=== PATIENT | male | born 1965 | race Caucasian/White ===

== ENCOUNTER 2018-10-27 22:06 | Emergency (ER) | payer SELFPAY ==
[~2018-10-27] VITALS: Wt 76.1 kg
[2018-10-28] MEDS ORDERED: IBUPROFEN 600 MG TAB PO ONE (02:00)
[2018-10-28] MEDS ORDERED: FAMO-96 PO (04:37)
[2018-10-28] MEDS ORDERED: IBUP-1542 PO (04:37)
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
[2018-10-28 05:12] VITALS: BP 141/95; PULSE 70; RESP 20
== END 2018-10-28 05:16 | disposition home or self-care (01) ==
LOC: FTE 22:06
DX: S43.101A Unspecified dislocation of right acromioclavicular joint, initial encounter (principal); F17.210 Nicotine dependence, cigarettes, uncomplicated; R07.9 Chest pain, unspecified; V18.4XXA Pedal cycle driver injured in noncollision transport accident in traffic accident, initial encounter
CPT/HCPCS: 71045; 71100; 73050; 93005

== ENCOUNTER 2018-11-13 20:15 | Emergency (ER) | payer SELFPAY ==
[~2018-11-13] VITALS: Ht 167.6 cm; Wt 75.0 kg
[~2018-11-13 20:15] MED LIST: FAMO-96 PO; IBUP-1542 PO
[2018-11-13 20:31] VITALS: Ht 167.6 cm; Wt 75.0 kg
[2018-11-13] MEDS ORDERED: ONDANSETRON (ODT) 4 MG TAB ODT STA (21:19)
[2018-11-13] MEDS ORDERED: IBUPROFEN 800 MG TAB PO ONE (21:30)
[2018-11-13] MEDS ORDERED: CEFTRIAXONE 250 MG INJ IM ONE (21:30)
[2018-11-13] MEDS ORDERED: AZITHROMYCIN 250 MG TAB PO ONE (21:30)
[2018-11-13 22:00] VITALS: RESP 16
[2018-11-13] MEDS ORDERED: LIDOCAINE 1% (MPF) 5 ML VIAL INJ ONE (22:00)
[2018-11-13] MEDS ORDERED: IBUP-1542 PO (23:33)
[2018-11-13] MEDS ORDERED: CIPR500T4 PO (23:36)
--- NOTE | 2018-11-13 23:39 | ERD ---
ER Documentation Chief Complaint Chief Complaint LEFT TESTICAL SWELLING/PAIN WITH PAIN IN URINATION X3DAYS; POSS STI; UNSURE HPI Patient is a 53-year-old male with no medical problems who presents with left- sided testicular pain. He said the symptoms started on . He said that yesterday he tried ibuprofen. He reports subjective fevers. He has no discharge from his penis. Upon review of old medical records this is the patient's fifth visit to the ER since 2006. ROS All systems reviewed and are negative except as per history of present illness. Medications Home Meds Active Scripts Ciprofloxacin Hcl* (Ciprofloxacin Hcl*) 500 Mg Tablet, 500 MG PO BID for 7 Days, TAB Prov:PATTIE URENA MD 11/13/18 Ibuprofen* (Motrin*) 600 Mg Tab, 600 MG PO Q6H PRN for PAIN AND OR ELEVATED TEMP, #30 TAB Prov:PATTIE URENA MD 11/13/18 Famotidine* (Pepcid*) 20 Mg Tablet, 20 MG PO BID, #20 TAB Prov:MARINE VARELA PA-C 10/28/18 Ibuprofen* (Motrin*) 600 Mg Tab, 600 MG PO Q8, #20 TAB Prov:MARINE VARELA PA-C 10/28/18 Allergies Allergies: Coded Allergies: No Known Drug Allergies (Verified Allergy, Unknown, 10/27/18) PMhx/Soc Medical and Surgical Hx: pt denies Medical Hx, pt denies Surgical Hx Hx Alcohol Use: No Hx Substance Use: Yes (social, crystal meth) Hx Tobacco Use: Yes Smoking Status: Unknown if ever smoked FmHx Family History: No diabetes Physical Exam Vitals Vital Signs Date Temp Pulse Resp B/P (MAP) Pulse Ox O2 O2 Flow FiO2 Time Delivery Rate 11/13/18 100.1 94 19 145/88 99 20:31 (107) Physical Exam Const: No acute distress Head: Atraumatic Eyes: Normal Conjunctiva ENT: Normal External Ears, Nose and Mouth. Neck: Full range of motion. No meningismus. Resp: Clear to auscultation bilaterally Cardio: Regular rate and rhythm, no murmurs Abd: Soft, non tender, non distended. 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 Results 24 hrs Laboratory Tests Test 11/13/18 21:54 Bedside Urine pH (LAB) 6.5 Bedside Urine Protein (LAB) 2+ Bedside Urine Glucose (UA) Negative Bedside Urine Ketones (LAB) Trace Bedside Urine Blood Negative Bedside Urine Nitrite (LAB) Negative Bedside Urine Leukocyte Esterase (L Negative Current Medications Medications Dose Sig/Jack Start Time Status Last (Trade) Ordered Route PRN Stop Time Admin Dose Reason Admin Ceftriaxone 250 mg ONCE ONCE 11/13/18 DC 11/13/18 Sodium IM 21:30 22:13 (Rocephin) 11/13/18 21:31 1,000 mg ONCE ONCE 11/13/18 DC 11/13/18 Azithromycin PO 21:30 21:33 (Zithromax) 11/13/18 21:31 Ondansetron 4 mg ONCE STAT 11/13/18 DC 11/13/18 HCl (Zofran ODT 21:19 21:33 Odt) 11/13/18 21:21 Ibuprofen 800 mg ONCE ONCE 11/13/18 DC 11/13/18 (Motrin) PO 21:30 21:32 11/13/18 21:31 Lidocaine 5 ml ONCE ONCE 11/13/18 DC 11/13/18 (Xylocaine INJ 22:00 22:14 1% (Mpf)) 11/13/18 22:01 Procedures/MDM Ultrasound of the scrotum read by radiology was epididymo orchitis and hydrocele with good blood flow to the testicles bilaterally. Patient is a 53-year-old male who presents with left-sided testicular pain and swelling. There is no testicular torsion at this time. The patient will be treated with Cipro for 1 week for epididymoorchitis. The patient is a hydrocele and I will give information for Dr. Varela as he may need hydrocele removal if the pain continues. The patient was treated empirically for possible STD with ceftriaxone and Zithromax. The patient will be discharged but could return for any worsening symptoms. Departure Diagnosis: Primary Impression: Acute hydrocele Additional Impression: Pain in testicle Condition: Fair Patient Instructions: Hydrocele, Type Not Specified Referrals: BECK VARELA MD Additional Instructions: SPECIALIST: YOU HAVE A MEDICAL CONDITION WHICH REQUIRES YOU TO SEE A SPECIALIST WITHIN THE NEXT 1-2 DAYS. PLEASE FOLLOW UP WITH YOUR PRIMARY PHYSICIAN FOR REFFERAL.IF YOU DO NOT HAVE A PRIMARY CARE PHYSICIAN AND/OR YOU CAN NOT AFFORD TO SEE A PHYSICIAN THE FOLLOWING RESOURCES HAVE BEEN SUPPLIED TO YOU. IT IS YOUR RESPONSIBILITY TO BE SEEN BY THE SPECIALIST PATTIE URENA MD Nov 13, 2018 23:39
[2018-11-13 23:59] VITALS: BP 119/76; PULSE 82
== END 2018-11-14 | disposition home or self-care (01) ==
LOC: E/R 20:15
DX: N43.3 Hydrocele, unspecified (principal); Z87.891 Personal history of nicotine dependence
CPT/HCPCS: 76870; 81003; 96372; 99285; J0696

== ENCOUNTER 2019-07-15 05:35 | Emergency (ER) | payer OTHER ==
[~2019-07-15] VITALS: Ht 170.2 cm; Wt 79.0 kg
[~2019-07-15 05:35] MED LIST changes: +ACET500C5 PO; +CIPR500T4 PO; +ONDA4TAB14 PO
[2019-07-15 05:40] VITALS: Ht 170.2 cm; Wt 79.0 kg
[2019-07-15] MEDS ORDERED: ONDANSETRON 4 MG INJ IV STA (06:13)
[2019-07-15] MEDS ORDERED: morphine 4 MG/ML VIAL IV STA (06:13)
[2019-07-15] MEDS ORDERED: SOD CHLORIDE 0.9% 1,000 ML IV ONE (06:30)
[2019-07-15] MEDS ORDERED: KETOROLAC 30 MG INJ IM STA (07:59)
[2019-07-15] MEDS ORDERED: KETOROLAC 30 MG INJ IV STA (08:03)
[2019-07-15 10:16] VITALS: BP 142/98; PULSE 61; RESP 17
== END 2019-07-15 10:16 | disposition home or self-care (01) ==
LOC: FTE 05:35
DX: K80.20 Calculus of gallbladder without cholecystitis without obstruction (principal); F17.210 Nicotine dependence, cigarettes, uncomplicated; R10.11 Right upper quadrant pain
CPT/HCPCS: 71045; 76705; 80053; 80307; 81003; 83690; 84484; 85025; 85610; 85730; 93005; 96361; 96374; 96375; J1885; J2270; J2405; J7030; Z7502